=== PATIENT | female | born 2000 | race Caucasian/White ===

== ENCOUNTER 2021-01-27 16:47 | Emergency (ER) | payer OTHER, MEDICAID ==
[~2021-01-27] VITALS: Ht 152.4 cm; Wt 49.9 kg
[2021-01-27 16:57] VITALS: BP 128/50
== END 2021-01-27 17:46 | disposition home or self-care (01) ==
LOC: M.ERS 16:47
DX: M79.645 Pain in left finger(s) (principal); L60.8 Other nail disorders; Z88.5 Allergy status to narcotic agent

== ENCOUNTER 2021-08-05 20:19 | Emergency (ER) | payer OTHER, MEDICAID | END 2021-08-05 20:32 | disposition left against medical advice (07) | LOC: M.ERS 20:19 | DX: O46.93 Antepartum hemorrhage, unspecified, third trimester (principal); Z3A.32 32 weeks gestation of pregnancy; Z53.21 Procedure and treatment not carried out due to patient leaving prior to being seen by health care provider; Z88.6 Allergy status to analgesic agent ==